=== PATIENT | female | born 1985 | race Caucasian/White ===

== ENCOUNTER 2017-04-10 09:04 | Emergency (ER) | payer BC, SELFPAY ==
[2017-04-10 09:32] VITALS: BP 125/79; PULSE 86; RESP 18; TEMP 36.8; O2SAT 100; BMI 29.8
--- NOTE | 2017-04-10 09:48 | HMH.EDUTC ---
[facility] [place] Disposition Clinical Impression: Otitis media Qualifiers: Otitis media type: unspecified Laterality: right Qualified Code(s): H66.91 - Otitis media, unspecified, right ear Disposition: Home, Self-Care Condition on Discharge: Good Instructions: Ear Infections (Alternative Therapy), Ear Infections (Middle Ear) (Alternative Therapy), Middle Ear Infection Additional Instructions: Take medication as prescribed Over the counter Motrin or Tylenol as needed for fever or pain Follow up with family doctor Return if needed Warm compresses or rice packs will sometimes help with ear pain Prescriptions: Amoxicillin [Amoxicillin 500mg Cap] 500 mg PO TID #30 cap Guaifenesin/Pseudoephedrne HCl [Mucinex D ER 1,200-120 mg Tab] 1 each PO Q12H #20 tab.er.12h Referrals: Anne Al APRN [Primary Care Provider] - Time of Disposition: 09:59 Medical Decision Making - Medical Records Medical records reviewed: Yes: I reviewed the patient's medical records. Vital Signs: 04/10/17 09:32 Temperature 98.2 F Temperature Source Temporal Artery Scan Pulse Rate [Left Brachial] 86 Respiratory Rate 18 Blood Pressure [Left Arm] 125/79 Blood Pressure Mean [Left Arm] 94 Blood Pressure Source [Left Arm] Automatic Cuff Blood Pressure Position [Left Arm] Sitting 02 Sat by Pulse Oximetry 100 Oxygen Delivery Method Room Air - Akil Inquiry Pt receiving controlled substance: No Akil was queried for this patient: No [facility] [place] HPI - General Stated complaint: Possible ear infection right ear Mode of Arrival: Ambulatory Source of Information: Patient Limitations: No Limitations Description of Symptoms (Recalled from Triage Doc. by RN): C/O rt ear pain x2 days HEENT Symptoms (Recalled from RN notes): Yes (Rt ear pain) Resp Symptoms (Recalled from RN notes): No Skin Symptoms (Recalled from RN notes): No MS Symptoms (Recalled from RN notes): No Functional Status (Recalled from RN notes): n/a - History of Present Illness Provider Complaint: Patient state that she frequently gets ear infections State that she had one about a month ago States that now for last couple of day she has been having the same feeling States that she feels like her ear is full of water, having pain ;and pressure like feeling and feels like her nose is stopped up too State that last night ear was throbbing and kept her up all night so she came in this morning to have it checked - Related Data Previous Rx's Medication Instructions Recorded Amoxicillin [Amoxicillin 500mg 500 mg PO TID #30 cap 04/10/17 Cap] Guaifenesin/Pseudoephedrne HCl 1 each PO Q12H #20 tab.er.12h 04/10/17 [Mucinex D ER 1,200-120 mg Tab] Allergies Allergy/AdvReac Type Severity Reaction Status Date / Time No Known Allergies Allergy Verified 04/10/17 09:37 - Worker's Comp Is this a Worker's Comp case?: No [facility] History I have reviewed the patient's past medical history: Yes Medical History: Denies:: Cancer, Diabetes Mellitus Type 1, Diabetes Mellitus Type 2, MRSA Laterality Cases: Right: ACL Repair, Bilateral: Myringotomy (Ear Tubes), Tonsillectomy Amputation: No Fractures: No - *Social History Smoking Status: Never smoker Alcohol Intake: current Alcohol Intake Frequency:: holidays/special occasions only - Psychiatric History Expresses thoughts of harming self/others: None Suicide Plan Description: No Plan ROS Obtained: Yes All systems reviewed & no additional complaints - ENT Ears, Nose, Mouth, and Throat: Reports otalgia Physical Exam - General General appearance: alert, in no apparent distress - Expanded ENT Exam TM/Canal exam: Right TM: erythema Nose exam: Present: other (reports clear drainage from sinus) - Respiratory Respiratory exam: Present: normal lung sounds bilaterally. Absent: respiratory distress - Cardiovascular Cardiovascular exam: Present: regular rate, normal rhythm. Absent: JVD - Neurological Exam Neurological exam: Pre
--- NOTE | 2017-04-10 09:54 | ED_ITS ---
[facility] Disposition Clinical Impression: Otitis media Qualifiers: Otitis media type: unspecified Laterality: right Qualified Code(s): H66.91 - Otitis media, unspecified, right ear Disposition: Home, Self-Care Condition on Discharge: Good Instructions: Ear Infections (Alternative Therapy), Ear Infections (Middle Ear ) (Alternative Therapy), Middle Ear Infection Additional Instructions: Take medication as prescribed Over the counter Motrin or Tylenol as needed for fever or pain Follow up with family doctor Return if needed Warm compresses or rice packs will sometimes help with ear pain Prescriptions: Amoxicillin [Amoxicillin 500mg Cap] 500 mg PO TID #30 cap Guaifenesin/Pseudoephedrne HCl [Mucinex D ER 1,200-120 mg Tab] 1 each PO Q12H # 20 tab.er.12h Referrals: Anne Al APRN [Primary Care Provider] - Time of Disposition: 09:59 Medical Decision Making - Medical Records Medical records reviewed: Yes: I reviewed the patient's medical records. Vital Signs: 04/10/17 09:32 Temperature 98.2 F Temperature Source Temporal Artery Scan Pulse Rate [Left Brachial] 86 Respiratory Rate 18 Blood Pressure [Left Arm] 125/79 Blood Pressure Mean [Left Arm] 94 Blood Pressure Source [Left Arm] Automatic Cuff Blood Pressure Position [Left Arm] Sitting 02 Sat by Pulse Oximetry 100 Oxygen Delivery Method Room Air - Akil Inquiry Pt receiving controlled substance: No Akil was queried for this patient: No [facility] HPI - General Stated complaint: Possible ear infection right ear Mode of Arrival: Ambulatory Source of Information: Patient Limitations: No Limitations Description of Symptoms (Recalled from Triage Doc. by RN): C/O rt ear pain x2 days HEENT Symptoms (Recalled from RN notes): Yes (Rt ear pain) Resp Symptoms (Recalled from RN notes): No Skin Symptoms (Recalled from RN notes): No MS Symptoms (Recalled from RN notes): No Functional Status (Recalled from RN notes): n/a - History of Present Illness Provider Complaint: Patient state that she frequently gets ear infections State that she had one about a month ago States that now for last couple of day she has been having the same feeling States that she feels like her ear is full of water, having pain ;and pressure like feeling and feels like her nose is stopped up too State that last night ear was throbbing and kept her up all night so she came in this morning to have it checked - Related Data Previous Rx's Medication Instructions Recorded Amoxicillin [Amoxicillin 500mg 500 mg PO TID #30 cap 04/10/17 Cap] Guaifenesin/Pseudoephedrne HCl 1 each PO Q12H #20 tab.er.12h 04/10/17 [Mucinex D ER 1,200-120 mg Tab] Allergies Allergy/AdvReac Type Severity Reaction Status Date / Time No Known Allergies Allergy Verified 04/10/17 09:37 - Worker's Comp Is this a Worker's Comp case?: No [facility] History I have reviewed the patient's past medical history: Yes Medical History: Denies:: Cancer, Diabetes Mellitus Type 1, Diabetes Mellitus Type 2, MRSA Laterality Cases: Right: ACL Repair, Bilateral: Myringotomy (Ear Tubes), Tonsillectomy Amputation: No Fractures: No - *Social History Smoking Status: Never smoker Alcohol Intake: current Alcohol Intake Frequency:: holidays/special occasions only - Psychiatric History Expresses thoughts of harming self/others: None
[2017-04-10 10:06] VITALS: BP 125/79; PULSE 86; RESP 18; TEMP 36.8; O2SAT 100
== END 2017-04-10 10:07 | disposition home or self-care (01) ==
PROVIDERS: Emergency Provider Nurse Practitioner; Family Provider Nurse Practitioner Family; PCP Nurse Practitioner Family
DX: H66.91 Otitis media, unspecified, right ear (principal)
CPT/HCPCS: 99202

== ENCOUNTER → 2017-04-25 08:46 | Outpatient (CLI) | payer BC, SELFPAY ==
--- NOTE | 2017-04-25 08:54 | US_ITS ---
US abdomen limited: HISTORY: Right upper quadrant pain with nausea ITS.REASON: RUQ PAIN ORDERING PHYSICIAN: Anne Al PATIENT AGE: 32 years COMPARISON: None FINDINGS: PANCREAS: Unremarkable. No obvious mass or abnormal fluid collection. No ductal dilatation LIVER: No focal liver lesions demonstrated. Homogeneous echogenicity. No intrahepatic biliary ductal dilatation evident RIGHT KIDNEY: Unremarkable. Normal size and echogenicity. No hydronephrosis GALLBLADDER: There are stones present in the gallbladder. No gallbladder wall thickening, pericholecystic fluid, or biliary dilatation is evident. Common bile duct is normal at 3 mm. IMPRESSION: Cholelithiasis
== END ==
PROVIDERS: Family Provider Nurse Practitioner Family; PCP Nurse Practitioner Family; Visit Provider Nurse Practitioner Family
DX: R10.11 Right upper quadrant pain (principal)
CPT/HCPCS: 76705

== ENCOUNTER → 2017-06-06 10:53 | Outpatient (CLI) | payer BC, SELFPAY ==
[2017-06-06 11:15] LABS: Basophils % 0.4 % (0.1-2.0); Eosinophils # 0.1 K/mm3 (0.0-0.4); Hematocrit 43.4 % (37.0-47.0); Hemoglobin 14.5 g/dL (12.2-16.2); Lymphocytes # 1.7 K/mm3 (0.7-4.5); Lymphocytes % 29.8 K/mm3 (10-50); Mean Corpuscular HGB Conc 33.4 g/dL (31.8-35.4); Mean Corpuscular Volume 86.7 fl (81-99); Monocytes # 0.2 K/mm3 (0.1-1.0); Monocytes % 3.4 % (1.7-9.3); Neutrophils # 3.7 K/mm3 (1.8-7.8); Neutrophils % 64.4 % (37.0-80.0); Platelet Count 181 K/mm3 (142-424); Red Cell Distribution Width 12.6 % (11.5-17.5); White Blood Count 5.7 K/mm3 (4.8-10.8)
[2017-06-06 11:27] LABS: Alanine Aminotransferase 28 U/L (12-78); Albumin Level 3.9 gm/dL (3.4-5.0); Albumin/Globulin Ratio 1.1 (1.1-1.8); Alkaline Phosphatase 63 U/L (46-116); Anion Gap 11.1 mEq/L (5-15); Aspartate Amino Transferase 15 U/L (15-37); Bilirubin,Total 1.2 mg/dL (0.2-1.0); Blood Urea Nitrogen 11 mg/dL (7-18); Calcium 8.9 mg/dL (8.5-10.1); Carbon Dioxide 29 mmol/L (21.0-32.0); Chloride 104 mmol/L (98-107); Creatinine,Serum 0.63 mg/dL (0.55-1.02); Estimated Glomerular Filt Rate 110 ml/min (>60); GFR (African American) 133 ML/MIN (>60); Globulin 3.7 gm/dl (1.3-3.2); Glucose 94 mg/dL (74-106); Potassium 4.1 mmoL/L (3.5-5.1); Sodium 140 mmol/L (136-145); Total Protein,Serum 7.6 gm/dL (6.4-8.2)
[2017-06-06 12:23] LABS: HCG Qualitative, Serum Negative (Negative)
== END ==
PROVIDERS: Visit Provider Surgery
DX: K80.10 Calculus of gallbladder with chronic cholecystitis without obstruction (principal)
CPT/HCPCS: 36415; 80053; 84703; 85025

== ENCOUNTER 2017-06-10 08:00 | Day surgery (SDC) | payer BC, SELFPAY ==
[2017-06-09 15:34] VITALS: BMI 29.8
[2017-06-10] VITALS (16 sets, daily range): BP systolic 110–127; BP diastolic 72–83; PULSE 68–89; RESP 13–23; TEMP 36.2–43; O2SAT 96–100
--- NOTE | 2017-06-10 08:51 | P.PN_ITS ---
[facility] Anesthesia Checklist - Structural Data Admitted From: Home Planned Operative Procedure/s: marlys ileana Consent for Planned Operative Procedure(s) Verified: Yes Verified Documents: Surgical Consent - Airway Assessment C-Spine Mobility Assessed: Yes TMJ Mobility Assessed: Yes Dentition: Good Dentition - Neurological Assessment Level of Consciousness: Awake, Alert - Anesthesia Plan Anesthesia Risk discussed: Yes Anesthesia Plan: Verified ASA Class: II Anesthesia Type: General [facility] Anesthesia HX I have reviewed the patient's past medical history: Yes Medical History: Denies:: Cancer, Diabetes Mellitus Type 1, Diabetes Mellitus Type 2, MRSA, Seizures Other Medical History: Denies: Blood Transfusion Reaction Laterality Cases: Right: ACL Repair, Bilateral: Myringotomy (Ear Tubes), Tonsillectomy Amputation: No Fractures: No *Family Hx:: Hypertension, Thyroid Disorder
--- NOTE | 2017-06-10 10:09 | P.OP_ITS ---
Date of procedure: 06/10/17 Pre-op Diagnosis:: Chronic calculus cholecystitis Post-op Diagnosis:: Same Procedure performed:: Laparoscopic cholecystectomy Surgeon:: Mann Simpson MD SHUTTLECOCK ASSEMBLER:: Enrique Kessler Anesthesia: MARIA DE JESUS Estimated blood loss (mL): 10 Operative findings:: Moderate pericholecystic fat stranding Operative note:: After informed consent was obtained, the patient was taken to the operating room and placed in the supine position. General anesthesia was induced and the abdomen was prepped and draped in a sterile fashion. After infiltration with local anesthetic an infraumbilical incision was made. A Veress needle was placed in position. The abdomen was insufflated. A 5 mm optical trocar was placed in position. Under direct visualization, a 12 mm trocar was placed in the subxiphoid position and 2 additional 5 mm trocars were placed in the right upper quadrant. The gallbladder was elevated up and over the liver margin. The tissue around the cystic duct was carefully dissected. 3 clips were placed proximally and the duct was transected with harmonic abraham. Harmonic abraham were then utilized to dissect the gallbladder away from the liver margin with careful attention to the control of the cystic artery. The gallbladder was placed in a retrieval bag and removed through the subxiphoid trocar site. The right upper quadrant was thoroughly irrigated. No active bleeding or bile leak was noted. Fascia at the subxiphoid trocar site was reapproximated utilizing 0 Ethibond. The remaining trocars were removed. All wounds were irrigated and skin was closed with 4-0 Monocryl in a subcuticular fashion. Steri-Strips were applied. The patient's anesthetic agents were reversed and extubation was completed prior to transfer to recovery in stable condition. Condition: stable Disposition: PACU Specimens:: Gallbladder and contents Complications:: No immediate
--- NOTE | 2017-06-10 10:18 | HMH.ANESI ---
[facility] Anesthesia Record Part I Intake, IV Amount: 1,500 Estimated blood loss (mL): 10 Urine output (mL): 0 Blood Pressure: 123/73 SaO2: 98 Pulse Rate: 89 Respiratory Rate: 16 Temperature: 98.1 F Patient is:: Drowsy, Stable Stable to PACU at:: 10:15
--- NOTE | 2017-06-10 10:19 | P.PN_ITS ---
[facility] Anesthesia Record Part II Discharge Time: 10:45 [facility] nurse assessment reviewed?: Yes Patient Condition:: Good Anesthesia Complications:: None
--- NOTE | 2017-06-10 10:19 | HMH.ANESII ---
[facility] Anesthesia Record Part II Discharge Time: 10:45 Destination: [facility] PACU nurse assessment reviewed?: Yes Patient Condition:: Good Anesthesia Complications:: None
--- NOTE | 2017-06-10 15:38 | SUR.PHASEI ---
Addendum entered by Meredith Kim RN 06/10/17 15:43: Original Note: Pt received Demerol 50 mg IVP while in PACU. After second dose of 25 mg, pt expressed abdominal pain more as gas pain. At this time I educated pt on laparoscopic procedures and how the gas must dissipate and break up in the muscles. We discussed walking and I also explained that gas medications would not be helpful if the gas sandra up into her shoulders, which is common.
== END 2017-06-10 12:10 | disposition home or self-care (01) ==
LOC: OR 08:03
PROVIDERS: Family Provider Nurse Practitioner Family; PCP Nurse Practitioner Family; Visit Provider Surgery
PROC: 0FT44ZZ Resection of Gallbladder, Percutaneous Endoscopic Approach (ICD-10-PCS; CPT 47562; principal; 2017-06-10 09:15)
DX: K80.10 Calculus of gallbladder with chronic cholecystitis without obstruction (principal)
CPT/HCPCS: 47562; 96374; J0131; J2405; J2710

== ENCOUNTER → 2019-02-26 08:44 | Outpatient (CLI) | payer BC, SELFPAY ==
--- NOTE | 2019-02-26 08:47 | FL_ITS ---
PROCEDURE: FL UPPER GI W AIR CLINICAL INDICATION: DYSPEPSIA Abdominal pain, heartburn COMPARISON: No exams were available for comparison TECHNIQUE: FLUOROSCOPY TIME : 1 minutes and 29 seconds FINDINGS: The esophagus, stomach, and duodenum have an unremarkable appearance.There is a mild amount of GE reflux noted during the exam. No hiatal hernia was evident. No ulcer or mass evident. No mucosal abnormalities apparent. There is normal peristalsis. The duodenal C-loop is nondisplaced. IMPRESSION: Mild GE reflux otherwise negative Dictated by: Hermann English MD 02/26/2019 16:25 Electronically signed by Hermann English MD in [place] 02/26/2019 16:25
== END ==
PROVIDERS: PCP Nurse Practitioner Family; Visit Provider Nurse Practitioner Family
DX: R10.13 Epigastric pain (principal)
CPT/HCPCS: 74247

== ENCOUNTER 2021-06-29 10:00 | Outpatient (RCR) | payer BC, SELFPAY ==
--- NOTE | 2021-05-04 11:54 | HMH.OTOPEV ---
OT Inpatient Evaluation Rehab OT Outpatient Eval Start: 05/04/21 11:40 Freq: Status: Active Protocol: Document 05/04/21 11:40 [facility] (Rec: 05[facility]04/21 11:54 [id number] Electronically Signed By Denae Carrasco OT 05/04/21 11:40 Outpatient Therapy Subjective History Subjective History Pt is a 36 year old female who reports to therapy for initial evaluation to Right shoulder. Pt reports she started having pain in shoulder/upper trap area ~1 month ago. 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 This particiular job requires repetitive movement/motion at shoulder. During ultrasounds pt has to keep her right shoulder abducted to 90 degrees with constant internal and external rotations (push/ pull motions) for an extended amount of time. Pt demonstrates with symptoms consistent with Shoulder impingement syndrome. Pt does have a slight decline in AROM and strength at right shoulder. Pt is right hand dominant. Pt will continue to be seen twice a week in order to address right shoulder deficits. 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 Strength Symptom Type Ache,Throb,Sharp,Dull Symptoms Relieved By Rest/Positioning Symptoms Aggravated By Physical Activity,Lifting Prior Functional Limitations None Current Functional Limitations Reaching,Lifting,Housework, Driving,Sleeping,Recreation Activity Symptom Description Intermittent,Activity Dependent Level of pain today (0-10) 4 Pain scale - at its best (0-10) 0 Pain scale - at its worst (0-10) 7 Shoulder/Elbow Eval Shoulder Objective Measurements Shoulder ROM Right Shoulder Abduction Active Range of 140 degrees Motion (degrees) Shoulder Flexion Active Range of Motion 135 degrees (degrees) Query Text: Shoulder External Rotation Active Range 65 degrees of
== END 2021-06-29 10:05 | disposition home or self-care (01) ==
LOC: OT 10:00
PROVIDERS: PCP Nurse Practitioner Family; Visit Provider Nurse Practitioner Family
DX: M77.8 Other enthesopathies, not elsewhere classified (principal); M62.838 Other muscle spasm
CPT/HCPCS: 97010; 97014; 97035; 97110; 97164; 97166; G0283

== ENCOUNTER → 2022-02-06 11:32 | Outpatient (CLI) | payer BC, SELFPAY ==
--- NOTE | 2022-02-06 11:38 | XR_ITS ---
PROCEDURE INFORMATION: Exam: XR Left Knee Exam date and time: 02/06/2022 11:40 AM Age: 36 years old Clinical indication: Pain; Knee; Left; Additional info: Twisted knee TECHNIQUE: Imaging protocol: Radiologic exam of the Left knee. Views: 3 views. COMPARISON: No relevant prior exams. FINDINGS: Bones/joints: Normal. The joint spaces are maintained. No fractures or dislocations. Soft tissues: Normal. No swelling or abnormal density. IMPRESSION: Unremarkable knee.
== END ==
PROVIDERS: PCP Nurse Practitioner Family; Visit Provider Nurse Practitioner Family
DX: M25.562 Pain in left knee (principal)
CPT/HCPCS: 73562